=== PATIENT | female | born 1940 | race African-American/Black ===

== ENCOUNTER 2017-01-09 06:27 | Day surgery (SDC) | payer OTHER ==
--- NOTE | ~2017-01-09 | EGD ---
EGD REPORT [facility] [address] [address] NAME: TAWANDA BURCH : [birth year] STATUS : REG [facility]#: [id number] AGE: 76 ADM/REG DATE : 01/09/17 MR#: [id number] REPORT SERV DATE: 01/09/17 DICTATED BY: ANGELA URRUTIA DATE: 01/09/17 REPORT STATUS : Draft TRANSCRIBED [facility]: [facility] DATE: 01/09/17 Endoscopy Center Patient Name: Tawanda Burch Date of : 1940 Attending MD: ANGELA URRUTIA MD Procedure Date No Time: 01/09/2017 Procedure: Upper GI endoscopy Indications: Heartburn; Omeprazole daily. Patient Profile: Informed consent was obtained from the patient by me prior to the procedure. Risks, benefits, and alternatives were discussed including the risk of bleeding, perforation, infection, reaction to medicine, missed lesion, and cardiopulmonary complications. Referring MD: SABINA FAJARDO MD Medicines: Monitored Anesthesia Care Complications: No immediate complications. Procedure: Pre-Anesthesia Assessment: - ASA Grade Assessment: III - A patient with severe systemic disease. After obtaining informed consent, the endoscope was passed under direct vision. Throughout the procedure, the patient's blood pressure, pulse, and oxygen saturations were monitored continuously. The GIF H190 [id number] was introduced through the mouth, and advanced to the second part of duodenum. The endoscope was withdrawn with careful examination all mucosal surfaces including retroflexion stomach. The upper GI endoscopy was accomplished without difficulty. The patient tolerated the procedure well. Findings: The 2nd part of the duodenum was normal. Biopsies were taken with a cold forceps for histology. The first part of the duodenum was normal. The cardia, gastric fundus and gastric antrum were normal. A few 5 to 7 mm sessile polyps were found in the gastric body. Biopsies were taken with a cold forceps for histology. The gastric body was normal. Biopsies were taken with a cold forceps for histology. The esophagus and gastroesophageal junction were examined with white light. There was no visual evidence of Ruiz's esophagus. The examined esophagus was normal. Impression: - Normal 2nd part of the duodenum. Biopsied. - Normal first part of the duodenum. EGD REPORT [address] [address] NAME: TAWANDA BURCH : [birth year] STATUS : REG [facility] PAT#: [id number] AGE: 76 ADM/REG DATE : 01/09/17 MR#: [id number] REPORT SERV DATE: 01/09/17 DICTATED BY: ANGELA URRUTIA DATE: 01/09/17 REPORT STATUS : Draft TRANSCRIBED BY: [employer] DATE: 01/09/17 - Normal cardia, gastric fundus and antrum. - A few gastric polyps. Biopsied. - Normal gastric body. Biopsied. - There is no endoscopic evidence of Ruiz's esophagus. - Normal esophagus. Recommendation: - Patient has a contact number available for emergencies. The signs and symptoms of potential delayed complications were discussed with the patient. Return to normal activities tomorrow. Written discharge instructions were provided to the patient. - Regular diet. - Continue present medications. - Await pathology results. Procedure Code(s): --- Professional --- 88796, Esophagogastroduodenoscopy, flexible, transoral; with biopsy, single or multiple Diagnosis Code(s): --- Professional --- K31.7, Polyp of stomach and duodenum R12, Heartburn CPT copyright 2013 [employer]. All rights reserved. The codes documented in this report are preliminary and upon architecture internship review may be revised to meet current compliance requirements. ANGELA URRUTIA MD 01/09/2017 8:28 AM This report has been signed electronically. Number of Addenda: 0 Note Initiated On: 01/09/2017 8:14 AM Scope Withdrawal Time 0 hours 0 minutes 0 seconds [address] [id number]
--- NOTE | ~2017-01-09 | EGD ---
EGD REPORT [facility] [address] [address] NAME: TAWANDA BURCH : [birth year] STATUS : REG [facility]#: [id number] AGE: 76 ADM/REG DATE : 01/09/17 MR#: [id number] REPORT SERV DATE: 01/09/17 DICTATED BY: ANGELA URRUTIA DATE: 01/09/17 REPORT STATUS : Draft [facility]ANSCRIBED BY: [facility] DATE: 01/09/17 Endoscopy Center Patient Name: Tawanda Burch Date of : 1940 Attending MD: ANGELA URRUTIA MD Procedure Date No Time: 01/09/2017 Procedure: Colonoscopy Indications: High risk colon cancer surveillance: Personal history of non-advanced adenoma; last exam 2009. Patient Profile: Informed consent was obtained from the patient by me prior to the procedure. Risks, benefits, and alternatives were discussed including the risk of bleeding, perforation, infection, reaction to medicine, missed lesion, and cardiopulmonary complications. Referring MD: SABINA FAJARDO MD Medicines: Monitored Anesthesia Care Complications: No immediate complications. Procedure: Pre-Anesthesia Assessment: - ASA Grade Assessment: III - A patient with severe systemic disease. After I obtained informed consent, the scope was passed under direct vision. Throughout the procedure, the patient's blood pressure, pulse, and oxygen saturations were monitored continuously. The PCF [id number] was introduced through the anus and advanced to the cecum, identified by appendiceal orifice and ileocecal valve. The colonoscope was slowly withdrawn with careful examination all mucosal surfaces including specific attention around flexures and tip deflection behind folds; retroflexion performed in rectum. The colonoscopy was performed without difficulty. The patient tolerated the procedure well. The quality of the bowel preparation was adequate. The ileocecal valve, appendiceal orifice and rectum were photographed. Findings: A sessile polyp was found in the descending colon at 30 cm proximal to the anus. The polyp was 10 mm in size. The polyp was removed with a hot snare. Resection and retrieval were complete. The ascending colon appeared normal. Biopsies were taken with a cold forceps for histology. Two sessile polyps were found in the proximal transverse colon. The polyps were 3 to 5 mm in size. These polyps were removed with a cold biopsy forceps. Resection and retrieval were complete. EGD REPORT [address] [address] NAME: TAWANDA BURCH : [birth year] STATUS : REG [facility]#: [id number] AGE: 76 ADM/REG DATE : 01/09/17 MR#: [id number] REPORT SERV DATE: 01/09/17 DICTATED BY: ANGELA URRUTIA DATE: 01/09/17 REPORT STATUS : Draft TRANSCRIBED BY: [employer] DATE: 01/09/17 Impression: - One 10 mm polyp in the descending colon at 30 cm proximal to the anus. Resected and retrieved. - The ascending colon is normal. Biopsied. - Two 3 to 5 mm polyps in the proximal transverse colon. Resected and retrieved. Recommendation: - Patient has a contact number available for emergencies. The signs and symptoms of potential delayed complications were discussed with the patient. Return to normal activities tomorrow. Written discharge instructions were provided to the patient. - Regular diet. - Continue present medications. - Await pathology results. - Try cholestyramine for intermittent postprandial diarrhea (h/o CCx). - Continue ASA daily. - Repeat colonoscopy is not recommended for surveillance based on age/comorbidities. Procedure Code(s): --- Professional --- 46961, Colonoscopy, flexible, proximal to splenic flexure; with removal of tumor(s), polyp(s), or other lesion(s) by snare technique 57841, 59, Colonoscopy, flexible, proximal to splenic flexure; with biopsy, single or multiple Diagnosis Code(s): --- Professional --- D12.3, Benign neoplasm of transverse colon D12.4, Benign neoplasm of descending colon D12.6, Benign neoplasm of colon, unspecified Z86.010, Personal history of colonic polyps CPT copyright 2013 [employer]. All rights reserved. The codes documented in this report are preliminary and upon vocational ed instructor review may be revised to meet current compliance requirements. ANGELA URRUTIA MD 01/09/2017 9:06 AM This report has been signed electronically. Number of Addenda: 0 Note Initiated On: 01/09/2017 8:13 AM EGD REPORT [facility] [address] [address] NAME: TAWANDA BURCH : [birth year] STATUS : REG [facility] PAT#: [id number] AGE: 76 ADM/REG DATE : 01/09/17 MR#: [id number] REPORT SERV DATE: 01/09/17 DICTATED BY: ANGELA URRUTIA DATE: 01/09/17 REPORT STATUS : Draft TRANSCRIBED BY: [employer] DATE: 01/09/17 [address] [address]
[~2017-01-09 06:27] MED LIST: APRES50 PO; ASAB PO; CARTIA XT180 MG/24 PO; COZAAR100 MG PO; HALF81 PO; HUMALOG SC; KLOR-CON 1010 MEQ PO; L80 PO; LANTUS SC; LIPITOR20 PO; LOP100 PO; LOP50 PO; MAGOX4 PO; NORV10 PO; NORV5 PO; OTC IRON PO; PRILO PO; PRIN10 PO; SENSIPAR30 M1 PO; TUMSROLL PO; Z10 PO; Z300 PO; ZOCOR40 PO
[2017-01-09 07:07] LABS: CALCIUM, SERUM 8.4 MG/DL (8.5-10.4); CHLORIDE, SERUM 93 MMOL/L (96-112); CO2 (CARBON DIOXIDE) 26 MMOL/L (24-34); POTASSIUM, SERUM 3.9 MMOL/L (3.5-5.3); SODIUM, SERUM 134 MMOL/L (135-148)
[2017-01-09 07:08] LABS: BUN (BLOOD UREA NITROGEN) 37 MG/DL (6-23); CREATININE 8.78 MG/DL (0.55-1.02); GFR AFRICAN AMERICAN 5 ML/MIN (>=60); GFR NON AFRICAN AMERICAN 4 ML/MIN (>=60); GLUCOSE, SERUM 146 MG/DL (60-99)
== END 2017-01-09 23:59 | disposition home health service (06) ==
LOC: DMU 06:27
PROVIDERS: Anesthesiology; Internal Medicine Gastroenterology
PROC: 0DBM8ZZ Excision of Descending Colon, Via Natural or Artificial Opening Endoscopic (ICD-10-PCS; 2017-01-09)
PROC: 0DB98ZX Excision of Duodenum, Via Natural or Artificial Opening Endoscopic, Diagnostic (ICD-10-PCS; principal; 2017-01-09 08:00)
PROC: 0DB68ZX Excision of Stomach, Via Natural or Artificial Opening Endoscopic, Diagnostic (ICD-10-PCS; 2017-01-09 08:00)
PROC: 0DBL8ZX Excision of Transverse Colon, Via Natural or Artificial Opening Endoscopic, Diagnostic (ICD-10-PCS; 2017-01-09 08:00)
DX: D12.3 Benign neoplasm of transverse colon (principal); D12.4 Benign neoplasm of descending colon; E11.22 Type 2 diabetes mellitus with diabetic chronic kidney disease; N18.6 End stage renal disease; G47.33 Obstructive sleep apnea (adult) (pediatric); I13.2 Hypertensive heart and chronic kidney disease with heart failure and with stage 5 chronic kidney disease, or end stage renal disease; I10 Essential (primary) hypertension; I25.10 Atherosclerotic heart disease of native coronary artery without angina pectoris; K21.9 Gastro-esophageal reflux disease without esophagitis; I50.9 Heart failure, unspecified; Z86.010 Personal history of colon polyps
CPT/HCPCS: 80048; 88305; J2405

== ENCOUNTER 2017-03-15 23:00 | Emergency (ER) | payer OTHER | END 2017-03-16 00:39 | disposition home or self-care (01) | LOC: ER 23:00 | DX: S91.105A Unspecified open wound of left lesser toe(s) without damage to nail, initial encounter (principal); I11.0 Hypertensive heart disease with heart failure; I50.9 Heart failure, unspecified; Z86.73 Personal history of transient ischemic attack (TIA), and cerebral infarction without residual deficits; E11.9 Type 2 diabetes mellitus without complications; D64.9 Anemia, unspecified; Z90.710 Acquired absence of both cervix and uterus; Z90.49 Acquired absence of other specified parts of digestive tract; K21.9 Gastro-esophageal reflux disease without esophagitis; Z79.899 Other long term (current) drug therapy; Z79.4 Long term (current) use of insulin; Z79.82 Long term (current) use of aspirin | CPT/HCPCS: 99283 ==

== ENCOUNTER 2017-06-25 02:08 | Inpatient (IN) | payer OTHER ==
[~2017-06-25] VITALS: Ht 160 cm; Wt 119.4 kg
--- NOTE | ~2017-06-25 | HP ---
History And Physical [place] [address] [facility] [place]. [address] NAME: TAWANDA BURCH : [birth year] STATUS : ADM IN [facility]#: [id number] AGE: 76 ADM/REG DATE : 06/25/17 MR#: [id number] REPORT SERV DATE: 06/25/17 DICTATED BY: NAVNEET RODRIGUEZ DATE: 06/25/17 REPORT STATUS : Draft TRANSCRIBED BY: [employer] DATE: 06/25/17 DATE OF ADMISSION: 06/25/2017 ADMITTING GROUP: [facility]. SUBJECTIVE/CHIEF COMPLAINT: Cough, pneumonia, shortness of breath, and end-stage renal disease. HISTORY OF PRESENT ILLNESS: Ms. Burch is a 76-year-old female with end- stage renal disease, patient of [facility], hypertension, gout, and gastroesophageal reflux disease, who complained of worsening dyspnea this morning and cough. The patient is compliant with her dialysis treatments, goes to her regular scheduled treatments, and maintains her target weight. This weekend, however, she went to [place] for [facility] and may have had indulgence of fluid and salty foods. Therefore, she was in respiratory distress, most likely from volume overload. However, she also has a low-grade temperature. Her white count was 12.6 when she was evaluated in the emergency room. Her blood pressure on arrival was 199/82. Her chest x-ray shows bilateral consolidations. She was initially sent to [address] [place] [address], but then Rapid Response was called because her breathing was labored and shallow. I am seeing the patient now that she is transferred to CCU for the respiratory distress. I spoke with Critical Care Consultation, Dr. Gonzalez. He is going to start the BiPAP and also antibiotics renally dosed. The patient is able to give a history. She appears a little bit stable, but still having labored breaths and was on high-flow nasal cannula before BiPAP was started. She is lethargic. PAST MEDICAL HISTORY: End-stage renal disease, patient of [facility], hypertension, gout, and gastroesophageal reflux disease. FAMILY HISTORY: Noncontributory. SOCIAL HISTORY: Lives at [place] with her . No tobacco, alcohol, or drug use. REVIEW OF SYSTEMS: Positive for cough, dyspnea, lethargy, and edema. All other review of systems is negative at this time. PHYSICAL EXAMINATION: VITAL SIGNS: Temperature 100.1, blood pressure 170/76, pulse of 92, and 94% O2 saturation on high-flow nasal cannula. GENERAL: Alert and ordered x2, lethargic. EYES: Swollen lids. No conjunctivitis. Extraocular movements intact. ENT: Facial edema. Dry oropharynx. LYMPH: No supraclavicular or cervical lymphadenopathy. SKIN: No rash or lesions. HEART: S1, S2. Regular. Positive edema. LUNGS: Positive cough. Diffuse bilateral rhonchi, now on BiPAP. Positive tachypnea. ABDOMEN: Soft, obese, and decreased bowel sounds. History And Physical [address] [place]. [address] NAME: TAWANDA BURCH : [birth year] STATUS : ADM IN [facility]#: [id number] AGE: 76 ADM/REG DATE : 06/25/17 MR#: [id number] REPORT SERV DATE: 06/25/17 DICTATED BY: NAVNEET RODRIGUEZ DATE: 06/25/17 REPORT STATUS : Draft TRANSCRIBED BY: [employer] DATE: 06/25/17 EXTREMITIES AND PSYCH: Right upper arm AV fistula. Positive thrill. Normal mood and affect. LABORATORY DATA: Influenza A and B have been negative on this admission. Sodium 140, potassium 4.2, chloride 101, bicarbonate 29, BUN 62, creatinine 10.4, and glucose 199. Calcium 8.6, albumin 3.1, alkaline phosphatase 125. BNP 482.8. Lactate 1.7. White count 12.6, hemoglobin 11.5, hematocrit 36.2, and platelets 220. Chest x-ray shows bilateral consolidations and shallow respirations. ASSESSMENT AND PLAN: Ms. Burch is a 76-year-old female with acute respiratory distress, most likely combination of volume overload with community-acquired pneumonia. She is end-stage renal disease patient of [facility]. 1. Renal. The patient's hemodialysis is ordered for urgent today because of volume removal, we will try to maximize ultrafiltration. She is a compliant patient of [facility]. 2. Hypertension. Resume home medications including diuretics. 3. Respiration. I appreciate critical care consultation. She is currently on BiPAP. They will address antibiotics renally dosed and her code status. Currently, the patient is in fair condition with tachypnea and labored breathing. Her BNP is not markedly elevated, which suggests that she does have a secondary component to her respiratory distress, most likely pneumonia. SHAW/MODL Navneet Rodriguez M.D. / [id number] CC: Prema Burks M.D.
--- NOTE | ~2017-06-25 | CN ---
Consultation Report [facility] [address] [place]. [address] NAME: TAWANDA BURCH : [birth year] STATUS : ADM IN [facility]#: [id number] AGE: 76 ADM/REG DATE : 06/25/17 MR#: [id number] REPORT SERV DATE: 06/26/17 DICTATED BY: MIKALA GONZALEZ DATE: 06/25/17 REPORT STATUS : Draft TRANSCRIBED BY: [employer] DATE: 06/25/17 CRITICAL CARE MEDICINE CONSULT NOTE DATE OF CONSULTATION: 06/25/2017 REASON FOR CONSULTATION: Acute hypoxic respiratory failure. CHIEF COMPLAINT: Cannot breathe. HISTORY OF PRESENT ILLNESS: Mrs. Burch is a 76-year-old female with a past medical history of end-stage renal disease, who was admitted today with cough, shortness of breath, and pneumonia. The patient was out for the weekend. Started having chills yesterday for which the patient was also having worsening shortness of breath and cough. There was thought that she was in volume overload as she was at the [facility] and may have taken too much fluid intake. However, her chest x-ray has significant bilateral infiltrates and a rapid response was called. Upon seeing her in the intensive care unit, she was on 10 L nasal cannula with a good oxygen saturation; however, difficulty breathing. The patient was given BiPAP therapy for which the patient's symptoms of shortness of breath significantly improved. Per Nephrology, she is to get a CT angiogram afterwards to rule out blood clots with her travels. Otherwise, her lethargy has improved. No other complaints. PAST MEDICAL HISTORY: End-stage renal disease, gout, hypertension, and reflux. MEDICATIONS: Current medications include Cozaar, aspirin, Lasix twice daily 80 mg, Lipitor, Norvasc, Rocephin. ALLERGIES: NO KNOWN DRUG ALLERGIES. SOCIAL HISTORY: The patient is currently . No current tobacco use. FAMILY HISTORY: No significant pulmonary family history. REVIEW OF SYSTEMS: Please see above, otherwise no further complaints. PHYSICAL EXAMINATION: VITAL SIGNS: Currently, on 8 L to 10 L nasal cannula with an oxygen saturation around 93% to 95%, respiratory rate in the 30s, pulse is in the 90s with a temperature of a 100.1. GENERAL: The patient is in acute respiratory distress, rapid shallow breathing, improved on BiPAP therapy. NECK: JVD is noted at the base of the neck, sitting at 45 degrees. PULMONARY: The patient has rhonchorous and coarse breath sounds bilaterally. CARDIAC: Regular rate, with no murmurs. ABDOMEN: Soft, nontender, nondistended. Consultation Report [place] [address] [place]. [address] NAME: TAWANDA BURCH : 42 STATUS : ADM IN PAT#: [id number] AGE: 76 ADM/REG DATE : 06/25/17 MR#: [id number] REPORT SERV DATE: 06/26/17 DICTATED BY: MIKALA GONZALEZ DATE: 06/25/17 REPORT STATUS : Draft TRANSCRIBED BY: [employer]L DATE: 06/25/17 EXTREMITIES: No edema, peripheral pulses noted. NEUROLOGIC: The patient has no focal neurological deficits. LABORATORY EXAMINATION: White blood cell count 12.6, hemoglobin 11.5, stigmata of kidney failure, BNP 483. Arterial blood gas shows a pH of 7.43, pCO2 of 39, pO2 of 70. IMAGING DATA: The patient has dense bilateral infiltrates which are new. ASSESSMENT AND PLAN: Mrs. Burch is a 76-year-old female with a past medical history of end stage renal disease, for which the patient is noted to have acute hypoxic respiratory failure. 1. Acute hypoxic respiratory failure: Unclear of the etiology here, the patient is to obtain dialysis and BiPAP therapy. She will have a repeat CTA to rule out blood clots. We will then be able to look at the infiltrate pattern and have a better idea with her etiology. With the mild temperature, mild leukocytosis, and complaints of fevers, we will start community-acquired pneumonia coverage. 2. End-stage renal disease: Per Primary. Thank you very much for this consultation, please call with any further questions or concerns. Critical care time: 40 minutes. This is in addition to any procedures. HFQ/MODL Mikala Gonzalez MD / [id number] CC: Prema Burks M.D.
[2017-06-25 03:26] LABS: BASOPHILS 0.2 %; BASOPHILS ABSOLUTE 0.02 10/3/uL (0.0-0.16); EOSINOPHILS 1.2 %; EOSINOPHILS ABSOLUTE 0.15 10/3/uL (0.0-0.53); ER CBC TAT 0 Hrs 10 Mins; HEMATOCRIT 36.2 % (36.0-48.0); HEMOGLOBIN 11.5 g/dL (12.0-16.0); IMMATURE GRANULOCYTES 0.3 %; IMMATURE GRANULOCYTES ABSOLUTE 0.04 10/3/uL (0.0-0.11); LYMPHOCYTES 9.8 %; LYMPHOCYTES ABSOLUTE 1.23 10/3/uL (0.67-4.30); MANUAL DIFF NO %; MEAN CORPUS HGB CONC 31.8 g/dL (32.0-36.0); MEAN CORPUSCULAR HEMOGLOB 29.4 pg (26.0-34.0); MEAN CORPUSCULAR VOLUME 92.6 fL (80-100); MEAN PLATELET VOLUME 11.4 fL (9.2-13.0); MONOCYTES 7.5 %; MONOCYTES ABSOLUTE 0.94 10/3/uL (0.21-1.20); NEUTROPHILS ABSOLUTE 10.23 10/3/uL (2.02-8.40); PLATELET COUNT 220 10/3/uL (150-400); RBC DISTRIBUTION WIDTH 15.4 % (12.0-16.0); RED CELL COUNT 3.91 10/6/uL (4.0-5.6); WHITE BLOOD CELLS 12.6 10/3/uL (4.5-10.5)
[2017-06-25 03:34] LABS: INFLUENZA A SCREEN NEGATIVE (NEGATIVE); INFLUENZA B SCREEN NEGATIVE (NEGATIVE)
[2017-06-25 03:40] LABS: LACTATE 1.7 MMOL/L (0.3-2.4)
[2017-06-25 03:42] LABS: A/G RATIO 0.7 (0.7-1.9); ALBUMIN 3.1 G/DL (3.5-5.0); CALCIUM, SERUM 8.6 MG/DL (8.5-10.4); CHLORIDE, SERUM 101 MMOL/L (96-112); CO2 (CARBON DIOXIDE) 29 MMOL/L (24-34); GLOBULIN 4.7 G/DL (2.5-4.1); POTASSIUM, SERUM 4.2 MMOL/L (3.5-5.3); SGOT(AST) 21 U/L (5-40); SGPT(ALT) 23 U/L (5-65); SODIUM, SERUM 140 MMOL/L (135-148); TOTAL PROTEIN 7.8 G/DL (6.0-8.5)
[2017-06-25 03:44] LABS: ALKALINE PHOSPHATASE 125 U/L (45-117); BUN (BLOOD UREA NITROGEN) 62 MG/DL (6-23); GFR AFRICAN AMERICAN 4 ML/MIN (>=60); GFR NON AFRICAN AMERICAN 3 ML/MIN (>=60); GLUCOSE, SERUM 199 MG/DL (60-99); TOTAL BILIRUBIN 0.3 MG/DL (0-1.2)
[2017-06-25] MEDS ORDERED: MAGOX4 PO (04:51)
[2017-06-25] MEDS ORDERED: L80 PO ×2 (04:51→04:57)
[2017-06-25] MEDS ORDERED: PRILO PO (04:52)
[2017-06-25] MEDS ORDERED: HALF81 PO (04:53)
[2017-06-25] MEDS ORDERED: LIPITOR20 PO (04:54)
[2017-06-25] MEDS ORDERED: ULTRAM50 PO (04:54)
[2017-06-25] MEDS ORDERED: Z300 PO (04:55)
[2017-06-25] MEDS ORDERED: NORV10 PO (04:55)
[2017-06-25] MEDS ORDERED: SENSIPAR30 M1 PO (04:56)
[2017-06-25] MEDS ORDERED: COZ50 PO (04:56)
[2017-06-25] MEDS ORDERED: BIOTIN5 MG PO (04:57)
[2017-06-25] MEDS ORDERED: ZINC PO (04:58)
[2017-06-25] MEDS ORDERED: TUMSROLL PO (05:02)
[2017-06-25 10:03] LABS: ALLENS TEST Pos; BE (BASE EXCESS) 0.7 MEQ/L (0 +/- 2.5); CARBOXYHEMOGLOBIN 0.8 % (0-3); DEVICE NRB; HCO3 (ACTUAL BICARBONATE) 24.9 MEQ/L (23-27); HEMOBLOGIN CONTENT 12.3 G/DL (12-16); INSTRUMENT SERIAL # 35151; METHEMOGLOBIN 0.2 % (0-3); O2 CONTENT 16.2 VOL% (18-24); PCO2 (CO2 TENSION) 39 MMHG (35-45); PO2 (O2 TENSION) 70 MMHG (79-93); SAMPLE Arterial; pH 7.43 (7.37-7.43)
[2017-06-26 06:37] LABS: BASOPHILS 0.2 %; BASOPHILS ABSOLUTE 0.02 10/3/uL (0.0-0.16); EOSINOPHILS 0.1 %; EOSINOPHILS ABSOLUTE 0.01 10/3/uL (0.0-0.53); HEMOGLOBIN 10.4 g/dL (12.0-16.0); IMMATURE GRANULOCYTES 0.3 %; IMMATURE GRANULOCYTES ABSOLUTE 0.04 10/3/uL (0.0-0.11); LYMPHOCYTES 8.4 %; LYMPHOCYTES ABSOLUTE 1.04 10/3/uL (0.67-4.30); MEAN CORPUS HGB CONC 32.1 g/dL (32.0-36.0); MEAN CORPUSCULAR HEMOGLOB 29.7 pg (26.0-34.0); MEAN CORPUSCULAR VOLUME 92.6 fL (80-100); MEAN PLATELET VOLUME 11.6 fL (9.2-13.0); MONOCYTES 7.5 %; MONOCYTES ABSOLUTE 0.93 10/3/uL (0.21-1.20); NEUTROPHILS 83.5 %; NEUTROPHILS ABSOLUTE 10.41 10/3/uL (2.02-8.40); PLATELET COUNT 215 10/3/uL (150-400); RBC DISTRIBUTION WIDTH 15.6 % (12.0-16.0); WHITE BLOOD CELLS 12.5 10/3/uL (4.5-10.5)
[2017-06-26 06:38] LABS: HEMATOCRIT 32.4 % (36.0-48.0); MANUAL DIFF NO %
[2017-06-26 06:49] LABS: ALBUMIN 2.4 G/DL (3.5-5.0); BUN (BLOOD UREA NITROGEN) 50 MG/DL (6-23); CALCIUM, SERUM 8.7 MG/DL (8.5-10.4); CHLORIDE, SERUM 101 MMOL/L (96-112); CO2 (CARBON DIOXIDE) 25 MMOL/L (24-34); CREATININE 8.66 MG/DL (0.55-1.02); GFR AFRICAN AMERICAN 5 ML/MIN (>=60); GFR NON AFRICAN AMERICAN 4 ML/MIN (>=60); GLUCOSE, SERUM 238 MG/DL (60-99); PHOSPHORUS, SERUM 4.3 MG/DL (2.5-4.5); POTASSIUM, SERUM 4.9 MMOL/L (3.5-5.3); SODIUM, SERUM 139 MMOL/L (135-148)
[2017-06-27 04:26] LABS: BASOPHILS 0.2 %; BASOPHILS ABSOLUTE 0.02 10/3/uL (0.0-0.16); EOSINOPHILS 0.6 %; EOSINOPHILS ABSOLUTE 0.07 10/3/uL (0.0-0.53); HEMATOCRIT 30.8 % (36.0-48.0); HEMOGLOBIN 9.8 g/dL (12.0-16.0); IMMATURE GRANULOCYTES 0.4 %; IMMATURE GRANULOCYTES ABSOLUTE 0.05 10/3/uL (0.0-0.11); LYMPHOCYTES ABSOLUTE 1.34 10/3/uL (0.67-4.30); MEAN CORPUS HGB CONC 31.8 g/dL (32.0-36.0); MEAN CORPUSCULAR HEMOGLOB 29.5 pg (26.0-34.0); MEAN CORPUSCULAR VOLUME 92.8 fL (80-100); MEAN PLATELET VOLUME 11.5 fL (9.2-13.0); MONOCYTES 8.8 %; MONOCYTES ABSOLUTE 0.98 10/3/uL (0.21-1.20); NEUTROPHILS ABSOLUTE 8.74 10/3/uL (2.02-8.40); PLATELET COUNT 240 10/3/uL (150-400); RBC DISTRIBUTION WIDTH 15.5 % (12.0-16.0); RED CELL COUNT 3.32 10/6/uL (4.0-5.6); WHITE BLOOD CELLS 11.2 10/3/uL (4.5-10.5)
[2017-06-27 04:28] LABS: MANUAL DIFF NO %
[2017-06-27 04:36] LABS: CALCIUM, SERUM 9.2 MG/DL (8.5-10.4); CHLORIDE, SERUM 100 MMOL/L (96-112); PHOSPHORUS, SERUM 4.3 MG/DL (2.5-4.5); POTASSIUM, SERUM 4.8 MMOL/L (3.5-5.3); SODIUM, SERUM 140 MMOL/L (135-148)
[2017-06-27 04:38] LABS: BUN (BLOOD UREA NITROGEN) 37 MG/DL (6-23); CO2 (CARBON DIOXIDE) 30 MMOL/L (24-34); CREATININE 7.86 MG/DL (0.55-1.02); GFR AFRICAN AMERICAN 5 ML/MIN (>=60); GFR NON AFRICAN AMERICAN 5 ML/MIN (>=60); GLUCOSE, SERUM 177 MG/DL (60-99)
[2017-06-28 05:11] LABS: ALBUMIN 2.3 G/DL (3.5-5.0); BUN (BLOOD UREA NITROGEN) 60 MG/DL (6-23); CALCIUM, SERUM 9.3 MG/DL (8.5-10.4); CHLORIDE, SERUM 97 MMOL/L (96-112); CO2 (CARBON DIOXIDE) 25 MMOL/L (24-34); CREATININE 9.66 MG/DL (0.55-1.02); GFR AFRICAN AMERICAN 4 ML/MIN (>=60); GFR NON AFRICAN AMERICAN 4 ML/MIN (>=60); GLUCOSE, SERUM 154 MG/DL (60-99); POTASSIUM, SERUM 4.4 MMOL/L (3.5-5.3); SODIUM, SERUM 136 MMOL/L (135-148)
[2017-06-28 05:18] LABS: BASOPHILS 0.3 %; BASOPHILS ABSOLUTE 0.03 10/3/uL (0.0-0.16); EOSINOPHILS 3.8 %; EOSINOPHILS ABSOLUTE 0.38 10/3/uL (0.0-0.53); HEMATOCRIT 29.3 % (36.0-48.0); HEMOGLOBIN 9.5 g/dL (12.0-16.0); IMMATURE GRANULOCYTES 0.6 %; IMMATURE GRANULOCYTES ABSOLUTE 0.06 10/3/uL (0.0-0.11); LYMPHOCYTES 10.8 %; LYMPHOCYTES ABSOLUTE 1.08 10/3/uL (0.67-4.30); MEAN CORPUS HGB CONC 32.4 g/dL (32.0-36.0); MEAN CORPUSCULAR HEMOGLOB 29.6 pg (26.0-34.0); MEAN CORPUSCULAR VOLUME 91.3 fL (80-100); MEAN PLATELET VOLUME 11.6 fL (9.2-13.0); MONOCYTES 10.2 %; MONOCYTES ABSOLUTE 1.02 10/3/uL (0.21-1.20); NEUTROPHILS 74.3 %; NEUTROPHILS ABSOLUTE 7.45 10/3/uL (2.02-8.40); PLATELET COUNT 267 10/3/uL (150-400); RBC DISTRIBUTION WIDTH 15.2 % (12.0-16.0); RED CELL COUNT 3.21 10/6/uL (4.0-5.6)
[2017-06-28 05:21] LABS: MANUAL DIFF NO %
[2017-06-29 09:35] LABS: BASOPHILS 0.3 %; BASOPHILS ABSOLUTE 0.03 10/3/uL (0.0-0.16); EOSINOPHILS 5.1 %; EOSINOPHILS ABSOLUTE 0.49 10/3/uL (0.0-0.53); HEMATOCRIT 29.7 % (36.0-48.0); HEMOGLOBIN 9.7 g/dL (12.0-16.0); IMMATURE GRANULOCYTES 0.3 %; IMMATURE GRANULOCYTES ABSOLUTE 0.03 10/3/uL (0.0-0.11); LYMPHOCYTES 11.6 %; LYMPHOCYTES ABSOLUTE 1.12 10/3/uL (0.67-4.30); MEAN CORPUS HGB CONC 32.7 g/dL (32.0-36.0); MEAN CORPUSCULAR HEMOGLOB 29.8 pg (26.0-34.0); MEAN CORPUSCULAR VOLUME 91.1 fL (80-100); MEAN PLATELET VOLUME 11.3 fL (9.2-13.0); MONOCYTES 11.4 %; NEUTROPHILS 71.3 %; NEUTROPHILS ABSOLUTE 6.88 10/3/uL (2.02-8.40); PLATELET COUNT 294 10/3/uL (150-400); RBC DISTRIBUTION WIDTH 15.3 % (12.0-16.0); RED CELL COUNT 3.26 10/6/uL (4.0-5.6); WHITE BLOOD CELLS 9.7 10/3/uL (4.5-10.5)
[2017-06-29 09:37] LABS: MANUAL DIFF NO %
[2017-06-29 09:47] LABS: ALBUMIN 2.6 G/DL (3.5-5.0); CALCIUM, SERUM 9.6 MG/DL (8.5-10.4); CHLORIDE, SERUM 102 MMOL/L (96-112); CO2 (CARBON DIOXIDE) 24 MMOL/L (24-34); PHOSPHORUS, SERUM 4.1 MG/DL (2.5-4.5); POTASSIUM, SERUM 4.5 MMOL/L (3.5-5.3); SODIUM, SERUM 139 MMOL/L (135-148)
[2017-06-29 09:49] LABS: BUN (BLOOD UREA NITROGEN) 47 MG/DL (6-23)
[2017-06-29 09:50] LABS: CREATININE 8.43 MG/DL (0.55-1.02); GFR AFRICAN AMERICAN 5 ML/MIN (>=60); GFR NON AFRICAN AMERICAN 4 ML/MIN (>=60); GLUCOSE, SERUM 247 MG/DL (60-99)
[2017-07-02 08:08] LABS: BASOPHILS 0.4 %; BASOPHILS ABSOLUTE 0.04 10/3/uL (0.0-0.16); EOSINOPHILS 5.9 %; EOSINOPHILS ABSOLUTE 0.64 10/3/uL (0.0-0.53); HEMOGLOBIN 9.5 g/dL (12.0-16.0); IMMATURE GRANULOCYTES 0.7 %; IMMATURE GRANULOCYTES ABSOLUTE 0.08 10/3/uL (0.0-0.11); LYMPHOCYTES 14.1 %; LYMPHOCYTES ABSOLUTE 1.54 10/3/uL (0.67-4.30); MEAN CORPUS HGB CONC 32.8 g/dL (32.0-36.0); MEAN CORPUSCULAR HEMOGLOB 29.3 pg (26.0-34.0); MEAN CORPUSCULAR VOLUME 89.5 fL (80-100); MEAN PLATELET VOLUME 10.9 fL (9.2-13.0); MONOCYTES 8.2 %; NEUTROPHILS 70.7 %; NEUTROPHILS ABSOLUTE 7.73 10/3/uL (2.02-8.40); RBC DISTRIBUTION WIDTH 14.6 % (12.0-16.0); RED CELL COUNT 3.24 10/6/uL (4.0-5.6); WHITE BLOOD CELLS 10.9 10/3/uL (4.5-10.5)
[2017-07-02 08:10] LABS: MANUAL DIFF NO %; PLATELET COUNT 392 10/3/uL (150-400)
[2017-07-02 08:22] LABS: ALBUMIN 2.6 G/DL (3.5-5.0); CALCIUM, SERUM 9.4 MG/DL (8.5-10.4); CHLORIDE, SERUM 94 MMOL/L (96-112); CO2 (CARBON DIOXIDE) 22 MMOL/L (24-34); GLUCOSE, SERUM 259 MG/DL (60-99); POTASSIUM, SERUM 4.6 MMOL/L (3.5-5.3)
[2017-07-02 08:23] LABS: BUN (BLOOD UREA NITROGEN) 84 MG/DL (6-23); GFR AFRICAN AMERICAN 3 ML/MIN (>=60); GFR NON AFRICAN AMERICAN 3 ML/MIN (>=60); PHOSPHORUS, SERUM 6.3 MG/DL (2.5-4.5); SODIUM, SERUM 131 MMOL/L (135-148)
[2017-07-03 06:18] LABS: ALBUMIN 2.6 G/DL (3.5-5.0); CALCIUM, SERUM 9.4 MG/DL (8.5-10.4); CHLORIDE, SERUM 96 MMOL/L (96-112); GFR AFRICAN AMERICAN 5 ML/MIN (>=60); GFR NON AFRICAN AMERICAN 4 ML/MIN (>=60); GLUCOSE, SERUM 228 MG/DL (60-99); PHOSPHORUS, SERUM 5.5 MG/DL (2.5-4.5); POTASSIUM, SERUM 4.8 MMOL/L (3.5-5.3); SODIUM, SERUM 133 MMOL/L (135-148)
[2017-07-03 06:19] LABS: BUN (BLOOD UREA NITROGEN) 62 MG/DL (6-23); CO2 (CARBON DIOXIDE) 27 MMOL/L (24-34); CREATININE 8.67 MG/DL (0.55-1.02)
[2017-07-03 06:27] LABS: BASOPHILS 0.4 %; BASOPHILS ABSOLUTE 0.04 10/3/uL (0.0-0.16); EOSINOPHILS 4.7 %; EOSINOPHILS ABSOLUTE 0.45 10/3/uL (0.0-0.53); HEMATOCRIT 30.4 % (36.0-48.0); HEMOGLOBIN 9.7 g/dL (12.0-16.0); IMMATURE GRANULOCYTES 1.5 %; IMMATURE GRANULOCYTES ABSOLUTE 0.14 10/3/uL (0.0-0.11); LYMPHOCYTES 15.2 %; LYMPHOCYTES ABSOLUTE 1.44 10/3/uL (0.67-4.30); MEAN CORPUS HGB CONC 31.9 g/dL (32.0-36.0); MONOCYTES 12.3 %; MONOCYTES ABSOLUTE 1.17 10/3/uL (0.21-1.20); NEUTROPHILS 65.9 %; NEUTROPHILS ABSOLUTE 6.26 10/3/uL (2.02-8.40); PLATELET COUNT 391 10/3/uL (150-400); RBC DISTRIBUTION WIDTH 14.7 % (12.0-16.0); RED CELL COUNT 3.34 10/6/uL (4.0-5.6); WHITE BLOOD CELLS 9.5 10/3/uL (4.5-10.5)
[2017-07-03 06:29] LABS: MANUAL DIFF NO %
[2017-07-03] MEDS ORDERED: LEVEMIR SC (13:10)
[2017-07-03] MEDS ORDERED: NOVOLOG SC (13:11)
== END 2017-07-03 15:02 | disposition home or self-care (01) | DRG 189 ==
LOC: ENRESERV → ENRESERVTM → ENRESERVDT → ER 02:08 → CCU 06:02 → 2SO 06:02 → 4SO 06:02 → CCU 09:57 → 2SO 06-29 16:23
PROVIDERS: Emergency Medicine; Internal Medicine Critical Care Medicine; Internal Medicine Nephrology; Registered Nurse
PROC: 5A09457 Assistance with Respiratory Ventilation, 24-96 Consecutive Hours, Continuous Positive Airway Pressure (ICD-10-PCS; principal; 2017-06-25)
PROC: 5A1D60Z (ICD-10-PCS; 2017-06-25)
DX: J96.01 Acute respiratory failure with hypoxia (principal); J18.9 Pneumonia, unspecified organism; N18.6 End stage renal disease; J44.0 Chronic obstructive pulmonary disease with (acute) lower respiratory infection; I12.0 Hypertensive chronic kidney disease with stage 5 chronic kidney disease or end stage renal disease; E11.22 Type 2 diabetes mellitus with diabetic chronic kidney disease; E87.70 Fluid overload, unspecified; J44.1 Chronic obstructive pulmonary disease with (acute) exacerbation; M10.9 Gout, unspecified; K21.9 Gastro-esophageal reflux disease without esophagitis; Z99.2 Dependence on renal dialysis
CPT/HCPCS: 36600; 71010; 71275; 80048; 80053; 80069; 82330; 82805; 82962; 83605; 83735; 83880; 84100; 85025; 87040; 87641; 87804; 93005; 94660; 97161-GP; 97165-GO; A9270-GY; G0257; G8978-CJ-GP; G8979-CJ-GP; G8980-CJ-GP; J0360; J2405; P9047